=== PATIENT | male | born 1965 | race Caucasian/White ===

== ENCOUNTER 2022-03-17 06:58 | Outpatient (CLI) | payer BC, SELFPAY ==
--- NOTE | 2022-03-17 07:15 | MR_ITS ---
WS: [id number] MRI CERVICAL SPINE NONCONTRAST HISTORY: Chronic neck and shoulder pain. Increasing pain. COMPARISON: None available. Technique: Multiplanar, multisequence noncontrast imaging of the cervical spine. Straightening of the normal cervical lordosis. Disc spaces are mildly narrowed throughout. Osteophyte s and disc space narrowing most significant from C3-4 through C6-7. No acute marrow edema or fractur e. Signal within the cervical cord is normal. Craniocervical junction, C1 and C2 relationship, odontoid process and soft tissues are normal. C2-C3: Normal. C3-C4: Moderate size central disc osteophyte encroaches and deforms the ventral thecal sac. Disc oste ophyte extends greatest to the RIGHT with more deformity of the RIGHT lateral thecal sac. Moderate ce ntral and RIGHT foraminal stenosis. Mild LEFT foraminal stenosis. Mild facet arthritis. C4-C5: Mild diffuse osteophytic ridging with disc bulging. Effacement of ventral CSF with the larger proximal RIGHT foraminal osteophyte. Moderate central and bilateral foraminal stenosis predominantly due to osteophytes. C5-C6: Mild osteophytic ridging. No significant stenosis. Mild facet arthritis. C6-C7: Mild osteophytic ridging and annular disc bulging and facet arthritis. Moderate LEFT foraminal disc osteophyte complex contacting the nerve roots. Mild central with moderate LEFT foraminal stenos is. C7-T1: Mild annular disc bulge with a moderate LEFT paracentral disc protrusion contacting the LEFT l ateral thecal sac. Mild central and bilateral foraminal stenosis. Paraspinal soft tissue are normal. MR/MR cervical spin wo con* [id number] IMPRESSION: 1. Multilevel central cervical and foraminal stenosis as above. 2. No acute fracture. 3. Moderate central and RIGHT foraminal stenosis at C3-4 due to disc osteophyt e disease. Only mild LEFT foraminal stenosis. 4. Moderate central and bilateral foraminal stenosis at C4-5 due to disc and o steophyte disease. 5. Moderate LEFT foraminal stenosis at C6-7 due to disc osteophyte with mild c entral stenosis. 6. Mild central and bilateral foraminal stenosis at C7-T1. LEFT paracentral di sc protrusion contacts the LEFT lateral thecal sac.
== END 2022-03-17 06:59 | disposition home or self-care (01) ==
PROVIDERS: PCP Family Medicine; Visit Provider Specialist
DX: M54.12 Radiculopathy, cervical region (principal); M48.02 Spinal stenosis, cervical region; R29.90 Unspecified symptoms and signs involving the nervous system
CPT/HCPCS: 72141

== ENCOUNTER 2022-04-01 06:00 | Outpatient (RCR) | payer BC, SELFPAY | END 2022-04-12 23:59 | disposition home or self-care (01) | LOC: SPT 06:00 | PROVIDERS: PCP Family Medicine; Referring Provider Specialist; Visit Provider Specialist | DX: M54.12 Radiculopathy, cervical region (principal); M48.02 Spinal stenosis, cervical region | CPT/HCPCS: 97110; 97161 ==

== ENCOUNTER 2022-12-03 08:17 | Outpatient (CLI) | payer OTHER, SELFPAY ==
--- NOTE | 2022-12-03 08:44 | XR_ITS ---
WS: [id number] EXAMINATION: XR lumbar spine 2-3V* [id number] L-SPINE : 3 views REASON FOR EXAM: LOW BACK PAIN COMPARISON: None available. ORDER DATE: 12/03/2022 9:05 AM FINDINGS: The lumbar vertebral bodies and the disc spaces are normal in width. Minor endplate spondylosis. In t he lumbar vertebra, there is no evidence of compression deformities or spondylolisthesis. XR/XR lumbar spine 2-3V* [id number] IMPRESSION: Minor degenerative change
== END 2022-12-03 08:18 | disposition home or self-care (01) ==
LOC: RAD 08:27
PROVIDERS: PCP Family Medicine; Visit Provider Family Medicine
DX: Z02.71 Encounter for disability determination (principal); M54.50 Low back pain, unspecified; M47.896 Other spondylosis, lumbar region
CPT/HCPCS: 72100

== ENCOUNTER 2024-11-24 08:07 | Emergency (ER) | payer MEDICARE, OTHER, SELFPAY ==
--- NOTE | 2024-11-24 08:10 | XR_ITS ---
WS: [id number] KUB, AP view, 11/24/2024 Clinical Data: abd pain Comparison: None. Findings: No abnormal intraabdominal masses or calcifications are seen. There is no dilatated small bowel or evidence of obstruction. There is air in the stomach, small bowel and colon. XR/XR abdomen 1V* [id number] Impression: Negative KUB.
[2024-11-24 08:14] VITALS: BP 116/73; PULSE 73; RESP 18; TEMP 36.7; O2SAT 99; BMI 29.7
[2024-11-24 08:48] LABS: Bilirubin Urine Negative (Negative); Blood Urine Negative (Negative); Glucose Urine UA Negative (Normal); Ketones Urine Negative (Negative); Leukocyte Esterase Urine Negative (Negative); Nitrate Urine Negative (Negative); Protein Urine Negative (Negative); Specific Gravity, Urine 1.012 (1.005-1.030); Urine Appearance Clear (CLEAR); Urine Color Yellow (Yellow)
[2024-11-24 08:50] LABS: Bacteria Urine None Seen /hpf; Hyaline Casts Urine 0-4 /lpf; RBC Urine 0-2 /hpf (0-2); Squamous Epithelial Cell Urine 0-5 /hpf (0-5); WBC Urine 0-5 /hpf (0-5)
[2024-11-24 08:58] LABS: Basophils # 0.1 10^3/uL (0.0-0.1); Basophils % 0.5 %; Eosinophils # 0.1 10^3/uL (0.0-0.8); Eosinophils % 0.7 %; Hematocrit 44.3 % (37-53); Lymphocytes # 1.1 10^3/uL (0.8-4.8); Lymphocytes % 8.6 %; Mean Corpuscular HGB Conc 33.4 g/dL (30-55); Mean Corpuscular Hemoglobin 27.8 pg (27-33); Mean Corpuscular Volume 83.3 fl (82-101); Mean Platelet Volume 10.7 fL (7.4-10.4); Monocytes # 1.5 10^3/uL (0.2-0.9); Monocytes % 11.3 %; Neutrophils # 10.32 10^3/uL (1.8-7.7); Neutrophils % 77.6 %; Nucleated Red Blood Cells % 0 %; Platelet Count 226 10^3/cmm (157-399); Red Blood Count 5.32 10^6/uL (3.85-5.65); Red Cell Distribution Width 12.9 % (12.1-15.1); White Blood Count 13.29 10^3/uL (3.29-11.43)
[2024-11-24 09:16] LABS: Alanine Aminotransferase 98 U/L (0-41); Albumin Level 3.7 g/dL (3.5-5.2); Alkaline Phosphatase 170 U/L (40-130); Anion Gap 14.9 (5-19); Aspartate Amino Transferase 26 U/L (0-40); Blood Urea Nitrogen 10 mg/dL (6-20); Calcium 8.3 mg/dL (8.5-10.5); Carbon Dioxide 21 mmol/L (22-29); Chloride 102 mmol/L (98-107); Creatinine Clr Calc Pharmacy 84.4295; Globulin 2.5 g/dL (1.3-4.6); Glomerular Filtration Rate 76.7 mL/min (90-130); Glucose 135 mg/dL (65-115); Lipase 20 U/L (13-60); Osmolality Calculated 279 mOsm/kg (285-295); Potassium 3.9 mmol/L (3.5-5.1); Sodium 134 mmol/L (136-145); Total Bilirubin 0.8 mg/dL (0.15-1.2); Total Protein 6.2 g/dL (6.6-8.7)
--- NOTE | 2024-11-24 09:18 | CTR_ITS ---
PROCEDURE INFORMATION: Exam: CT Abdomen And Pelvis With Contrast Exam date and time: 11/24/2024 9:31 AM Age: 59 years old Clinical indication: Abdominal pain; Abd pain. PT states he has taken multiple abx since aug 2024 for sinus congestion. PT states that he has had diarrhea x 2 weeks. PT states that he then started taking pepto and states he began passing dark black blood clots in stool. PT states that resolved after stopping the pepto. PT reports bloating, n/v, and abd pain TECHNIQUE: Imaging protocol: Computed tomography of the abdomen and pelvis with contrast. Radiation optimization: All CT scans at this facility use at least one of these dose optimization techniques: automated exposure control; mA and/or kV adjustment per patient size (includes targeted exams where dose is matched to clinical indication); or iterative reconstruction. Contrast material: OMNI 350; Contrast volume: 100 ml; Contrast route: INTRAVENOUS (IV); COMPARISON: CR XR abdomen 1V* [id number] 11/24/2024 8:38 AM RADIATION DOSE METRICS: Total DLP (mGy-cm): 854.66 FINDINGS: Lungs: Lung bases are clear as visualized. Diaphragm: Small hiatal hernia. Liver: Normal. No mass. Gallbladder and biliary ducts: Normal. No calcified stones. No ductal dilation. Pancreas: Normal. No ductal dilation. Spleen: Normal. No splenomegaly. Adrenal glands: Normal. No mass. Kidneys and ureters: Several small renal cysts bilaterally need no follow-up. Otherwise, unremarkable. Stomach and bowel: Pancolitis is likely infectious, but could be inflammatory bowel disease. A few diverticula from the colon. Otherwise, unremarkable. Appendix: No evidence of appendicitis. Intraperitoneal space: Small amount of free intraperitoneal fluid and fat stranding abdomen and pelvis bilaterally, likely secondary to bowel pathology. No free air. Vasculature: Unremarkable. No abdominal aortic aneurysm. Lymph nodes: Unremarkable. No enlarged lymph nodes. Urinary bladder: Unremarkable. Reproductive: Unremarkable. Bones/joints: Minimal multilevel spondylosis. Otherwise, unremarkable. Soft tissues: Small fat containing left inguinal hernia. Small fat containing benign-appearing umbilical hernia. Otherwise, unremarkable visualized body wall. Otherwise, unremarkable soft tissues. CT/CT abdomen pelvis w con* [id number] IMPRESSION: 1. Pancolitis is likely infectious, but could be inflammatory bowel disease. 2. Small amount of free intraperitoneal fluid and fat stranding abdomen and pelvis bilaterally, likely secondary to bowel pathology. 3. No other acute findings. 4. Additional details as above.
--- NOTE | 2024-11-24 09:22 | W.ED.ABDPA2 ---
HPI - Abdominal Pain General: Chief Complaint: Abdominal Pain Stated Complaint: constipation, vomiting Time Seen by Provider: 11/24/24 08:54 History of Present Illness: 59-year-old man who presents emergency room with abdominal pain, nausea and vomiting. He said he took some antibiotics and had some fairly extensive diarrhea. He then feels like over the last day he has been constipated. He developed some nausea and vomiting overnight. Is been having some lower abdominal pain. No known fevers Related Data Home Medications ?Medication ?Instructions ?Recorded ?Confirmed famotidine 10 mg tablet (Pepcid AC) 10 mg PO DAILY 01/28/22 11/24/24 lisinopril 40 mg tablet 40 mg PO DAILY 01/28/22 11/24/24 tamsulosin 0.4 mg capsule (Flomax) 0.4 mg PO DAILY 11/24/24 11/24/24 Previous Rx's ?Medication ?Instructions ?Recorded ciprofloxacin HCl 500 mg tablet 500 mg PO BID 10 days #20 tabs 11/24/24 metronidazole 500 mg tablet 500 mg PO Q8H 10 days #30 tabs 11/24/24 ondansetron 8 mg disintegrating 8 mg PO Q6H #14 tabs 11/24/24 tablet tramadol 50 mg tablet 50 mg PO Q8H PRN pain #10 tabs 11/24/24 Allergies Allergy/AdvReac Type Severity Reaction Status Date / Time propranolol Allergy JGY-Swell Verified 11/24/24 08:30 Lip/Tongue/Throat Review of Systems Narrative: Constitutional symptoms: Negative except as documented in HPI. Skin symptoms: Negative except as documented in HPI. Eye symptoms: Negative except as documented in HPI. ENMT symptoms: Negative except as documented in HPI. Respiratory symptoms: Negative except as documented in HPI. Cardiovascular symptoms: Negative except as documented in HPI. Gastrointestinal symptoms: Negative except as documented in HPI. Genitourinary symptoms: Negative except as documented in HPI. Musculoskeletal symptoms: Negative except as documented in HPI. Neurologic symptoms: Negative except as documented in HPI. Psychiatric symptoms: Negative except as documented in HPI. Endocrine symptoms: Negative except as documented in HPI. PFS ED PFSH: Social History Smoking and tobacco/nicotine status: never used tobacco/nicotine Physical Exam Narrative: EXAM NARRATIVE: General: Alert, no acute distress. Skin: Warm, dry. Head: Normocephalic, atraumatic. Neck: Supple, trachea midline. Eye: Extraocular movements are intact. Ears, nose, mouth and throat: Tacky oral mucosa Cardiovascular: Regular, Normal peripheral perfusion. Respiratory: Lungs are clear to auscultation, respirations are non-labored, breath sounds are equal, Symmetrical chest wall expansion. Gastrointestinal: Soft, Nontender, Non distended Musculoskeletal: Normal ROM, no deformity. Neurological: Alert and oriented, No focal neurological deficit observed. Psychiatric: Cooperative, appropriate mood & affect. Course Vital Signs: Vital signs: Vital Signs Temperature 98.0 F 11/24/24 08:14 Pulse Rate 65 11/24/24 11:32 Respiratory Rate 18 11/24/24 11:32 Blood Pressure 120/70 11/24/24 11:32 Pulse Oximetry 93 11/24/24 11:32 Oxygen Delivery Me thod Room Air 11/24/24 08:14 MDM - Abdominal Pain Medical Decision Making Medical decision making: Differential diagnosis for this patient with nausea and vomiting including but not limited to and based on the above HPI, review of systems and physical exam: Urinary tract infection. Appendicitis. Cholecystis. colitis. small bowel obstruction. crohn's flare. pancreatitis. gastritis. peptic ulcer. cyclic vomiting. Viral illness. Influenza. COVID. Orders placed to evaluate differential diagnosis based on the above differential, HPI and physical exam Lab Review: Laboratory results were reviewed and interpreted by myself the emergency room physician. Mild leukocytosis. No anemia. No renal failure. Urinalysis negative for infection. Lipase is negative. CT of the abdomen pelvis: Pancolitis. No other acute findings. This was reviewed and interpreted by myself the emergency room physician. I also reviewed the radiology report. I reviewed the patient's medical record. Reexamination: Patient remained stable. No increased work of breathing. No altered mental status. No focal motor deficits. Assessment and plan: Pancolitis Dehydration ? IV fluids Zofran and Toradol in the emergency room - Discharged home - Discussed plan with patient. Answered any questions. - Evaluation and treatment of this problem were appropriate in the emergency setting. Lab Data 11/24/24 08:54 11/24/24 08:54 Labs/Radiology: Radiology Impressions Abdomen X-Ray 11/24/24 08:10 Impression: Negative KUB. Abdomen/Pelvis CT 11/24/24 09:18 IMPRESSION: 1. Pancolitis is likely infectious, but could be inflammatory bowel disease. 2. Small amount of free intraperitoneal fluid and fat stranding abdomen and pelvis bilaterally, likely secondary to bowel pathology. 3. No other acute findings. 4. Additional details as above. Laboratory Results WBC 13.29 10^3/uL (3.29-11.43) H 11/24/24 08:54 RBC 5.32 10^6/uL (3.85-5.65) 11/24/24 08:54 Hgb 14.80 g/dL (11.27-16.99) 11/24/24 08:54 Hct 44.3 % (37-53) 11/24/24 08:54 MCV 83.3 fl (82-101) 11/24/24 08:54 MCH 27.8 pg (27-33) 11/24/24 08:54 MCHC 33.4 g/dL (30-55) 11/24/24 08:54 RDW 12.9 % (12.1-15.1) 11/24/24 08:54 Plt Count 226 10^3/cmm (157-399) 11/24/24 08:54 MPV 10.7 fL (7.4-10.4) H 11/24/24 08:54 Neut % (Auto) 77.6 % 11/24/24 08:54 Lymph % (Auto) 8.6 % 11/24/24 08:54 [place] % (Auto) 11.3 % 11/24/24 08:54 Eos % (Auto) 0.7 % 11/24/24 08:54 Baso % (Auto) 0.5 % 11/24/24 08:54 Neut # (Auto) 10.32 10^3/uL (1.8-7.7) H 11/24/24 08:54 Lymph # (Auto) 1.1 10^3/uL (0.8-4.8) 11/24/24 08:54 [place] # (Auto) 1.5 10^3/uL (0.2-0.9) H 11/24/24 08:54 Eos # (Auto) 0.1 10^3/uL (0.0-0.8) 11/24/24 08:54 Baso # (Auto) 0.1 10^3/uL (0.0-0.1) 11/24/24 08:54 Nucleated RBC % (auto) 0 % 11/24/24 08:54 Nucleated RBCs # 0.0 /100WBC 11/24/24 08:54 Sodium 134 mmol/L (136-145) L 11/24/24 08:54 Potassium 3.9 mmol/L (3.5-5.1) 11/24/24 08:54 Chloride 102 mmol/L (98-107) 11/24/24 08:54 Carbon Dioxide 21 mmol/L (22-29) L 11/24/24 08:54 Anion Gap 14.9 (5-19) 11/24/24 08:54 BUN 10 mg/dL (6-20) 11/24/24 08:54 Creatinine 1.0 mg/dL (0.7-1.2) 11/24/24 08:54 GFR Calculation 76.7 mL/min (90-130) L 11/24/24 08:54 Glucose 135 mg/dL (65-115) H 11/24/24 08:54 Calculated Osmolality 279 mOsm/kg (285-295) L 11/24/24 08:54 Calcium 8.3 mg/dL (8.5-10.5) L 11/24/24 08:54 Total Bilirubin 0.8 mg/dL (0.15-1.2) 11/24/24 08:54 AST 26 U/L (0-40) 11/24/24 08:54 ALT 98 U/L (0-41) H 11/24/24 08:54 Alkaline Phosphatase 170 U/L (40-130) H 11/24/24 08:54 Total Protein 6.2 g/dL (6.6-8.7) L 11/24/24 08:54 Albumin 3.7 g/dL (3.5-5.2) 11/24/24 08:54 Globulin 2.5 g/dL (1.3-4.6) 11/24/24 08:54 Lipase 20 U/L (13-60) 11/24/24 08:54 Urine Color Yellow (Yellow) 11/24/24 08:40 Urine Appearance Clear (CLEAR) 11/24/24 08:40 Urine pH 6.0 (5-7) 11/24/24 08:40 Ur Specific [place] 1.012 (1.005-1.030) 11/24/24 08:40 Urine Protein Negative (Negative) 11/24/24 08:40 Urine Glucose (UA) Negative (Normal) 11/24/24 08:40 Urine Ketones Negative (Negative) 11/24/24 08:40 Urine Blood Negative (Negative) 11/24/24 08:40 Urine Nitrate Negative (Negative) 11/24/24 08:40 Urine Bilirubin Negative (Negative) 11/24/24 08:40 Urine Urobilinogen 1.0 mg/dL (Negative) 11/24/24 08:40 Ur Leukocyte Esterase Negative (Negative) 11/24/24 08:40 Urine RBC 0-2 /hpf (0-2) 11/24/24 08:40 Urine WBC 0-5 /hpf (0-5) 11/24/24 08:40 Ur Squamous Epith Cells 0-5 /hpf (0-5) 11/24/24 08:40 Amorphous Sediment Not Reportable 11/24/24 08:40 Urine Bacteria None seen /hpf (NONE) 11/24/24 08:40 Hyaline Casts 0-4 /lpf H 11/24/24 08:40 All radiology interpretation(s) finalized by discharge Discharge Plan Discharge Patient Disposition: Home Clinical Impression: Pancolitis Condition: Stable Prescriptions: New metronidazole 500 mg tablet 500 mg PO Q8H 10 Days Qty: 30 0RF ciprofloxacin HCl 500 mg tablet 500 mg PO BID 10 Days Qty: 20 0RF tramadol 50 mg tablet 50 mg PO Q8H PRN (Reason: pain) Qty: 10 0RF ondansetron 8 mg tablet,disintegrating 8 mg PO Q6H Qty: 14 0RF Rx Instructions: Take 1/2-1 tab every 6 hours as needed for nausea and vomiting No Action famotidine [Pepcid AC] 10 mg tablet 10 mg PO DAILY lisinopril 40 mg tablet 40 mg PO DAILY tamsulosin [Flomax] 0.4 mg capsule 0.4 mg PO DAILY Discharge Orders: Discharge ED (Routine); Ordered 11/24/24 Ordered By: Elana Tyson Referrals: Alexi Sharpe MD [Primary Care Provider] - Discharge Diet: Advance as tolerated Discharge Activity: Increase activity as tolerated Patient Instructions: Opioid Safety, Pain Management Activity Restrictions/Additional Instructions: [facility]. Please realize this is an emergency room and that we are providing you with a medical screening exam and this may not be complete and all inclusive of all the testing and or work up that you may need to determine your ailment or severity of your illness. You have been screened and evaluated and felt safe for discharge. Health conditions do change or evolve sometimes and as such it is important that you follow up with your Primary Doctor to be re checked, 3-5 days is a general good time frame for follow up. You are always welcome to return to the ED for re assessment if your symptoms are worsening or you have new concerns Print Language: Vietnamese Coding Level of Care Code ED Fire Extinguisher Mechanic for Arjun Puentes
[2024-11-24] MEDS: iohexol 350 mg/mL 500 mL Btl (per mL) IV (09:42)
[2024-11-24] MEDS: sodium chloride 0.9% 1,000 ML 999 ML IV (09:52)
[2024-11-24] MEDS: ketorolac 30 mg/mL INJ IVP (09:52)
[2024-11-24] MEDS: ondansetron 2 mg/ML SDV 2 mL 8 MG IVP (09:52)
[2024-11-24 10:09] VITALS: BP 118/71; PULSE 66; RESP 18; O2SAT 98
[2024-11-24 11:32] VITALS: BP 120/70; PULSE 65; RESP 18; O2SAT 93
== END 2024-11-24 11:33 | disposition home or self-care (01) ==
PROVIDERS: Emergency Provider Emergency Medicine; PCP Family Medicine
DX: K52.9 Noninfective gastroenteritis and colitis, unspecified (principal)
CPT/HCPCS: 36415; 74018; 74177; 80053; 81001; 83690; 85025; 96374; 96375; 99285; J1885; J2405; J7030

== ENCOUNTER 2024-11-25 06:24 | Inpatient (IN) | payer MEDICARE, OTHER, SELFPAY ==
[2024-11-25] VITALS (10 sets, daily range): BP systolic 99–127; BP diastolic 52–72; PULSE 67–77; RESP 16–18; TEMP 36.6–37.1; O2SAT 94–98; BMI 28.1
--- NOTE | 2024-11-25 06:59 | W.ED.NAVMDI ---
HPI - Nausea/Vomiting/Diarrhea General: Chief complaint: Nausea/Vomiting/Diarrhea Stated complaint: n/v Time Seen by Provider: 11/25/24 06:35 Source: patient Mode of arrival: ambulatory Limitations: no limitations History of Present Illness: 59-year-old male he states that he has been having diffuse abdominal pain along with nausea vomiting for the last 2 days. He was seen here yesterday morning was diagnosed with a colitis he is started on Cipro Flagyl along with Zofran he states he has not been able tolerating the p.o. medicine he still had vomiting states his pain is worsening. He denies any fevers. Associated nausea: Yes Associated symtoms: Reports nausea; Denies chest pain, dysuria or headache(s) Related Data Home Medications ?Medication ?Instructions ?Recorded ?Confirmed famotidine 10 mg tablet (Pepcid AC) 10 mg PO DAILY 01/28/22 11/25/24 lisinopril 40 mg tablet 40 mg PO DAILY 01/28/22 11/25/24 tamsulosin 0.4 mg capsule (Flomax) 0.4 mg PO DAILY 11/24/24 11/25/24 Previous Rx's ?Medication ?Instructions ?Recorded ciprofloxacin HCl 500 mg tablet 500 mg PO BID 10 days #20 tabs 11/24/24 metronidazole 500 mg tablet 500 mg PO Q8H 10 days #30 tabs 11/24/24 ondansetron 8 mg disintegrating 8 mg PO Q6H #14 tabs 11/24/24 tablet tramadol 50 mg tablet 50 mg PO Q8H PRN pain #10 tabs 11/24/24 Allergies Allergy/AdvReac Type Severity Reaction Status Date / Time propranolol Allergy ALGY-Swell Verified 11/24/24 08:30 Lip/Tongue/Throat Review of Systems Const: Denies: fever(s), chills, body aches or change in appetite ENMT: Denies: throat pain or dental pain Card: Denies: chest pain Resp: Denies: dyspnea GI: Reports: abdominal pain, nausea and vomiting; Denies: diarrhea : Denies: dysuria Musc: Denies: neck pain or back pain Skin/Breast: Denies: rash Neuro: Denies: headache(s) PFSH ED PFSH: Social History Smoking and tobacco/nicotine status: never used tobacco/nicotine Physical Exam Const: COMMON NORMALS: no acute distress, patient oriented x3 and healthy appearing HENMT: COMMON NORMALS: normocephalic and atraumatic HEAD & SCALP: normocephalic and atraumatic Eye: COMMON NORMALS: conjunctivae normal CONJUNCTIVA: Yes conjunctivae normal Neck/C-Spine: COMMON NORMALS: full ROM and supple Chest: COMMONS NORMALS: normal inspection of the chest Resp: COMMON NORMALS: normal respiratory effort Cardio: COMMON NORMALS: regular rate, regular rhythm and No murmurs present (Cardio) RATE: regular rate RHYTHM: regular rhythm GI: COMMON NORMALS: Normal to inspection, nondistended, normoactive bowel sounds present, Soft to palpation and no masses PALPATION: Yes Soft to palpation OTHER: Diffuse tenderness Extremity: COMMON NORMALS: normal to inspection and full ROM Neuro: COMMON NORMALS: patient oriented x3, moves all extremities and no focal motor deficits Psych: COMMON NORMALS: mental status grossly normal, Normal thought process present and cooperative THOUGHT PROCESS: Normal thought process present Skin: COMMON NORMALS: no rashes or lesions noted and no wounds GENERAL SKIN EXAM: no rashes or lesions noted Course Vital Signs: Vital signs: Vital Signs Temperature 98.8 F 11/25/24 06:30 Pulse Rate 69 11/25/24 08:32 Respiratory Rate 16 11/25/24 08:01 Blood Pressure 124/57 11/25/24 08:32 Pulse Oximetry 95 11/25/24 08:32 Oxygen Delivery Me thod Room Air 11/25/24 06:30 MDM - Nausea/Vomiting/Diarrhea Medical Decision Making Patient presents here with diffuse abdominal pain along with vomiting he is seen yesterday and had a pancolitis he has not been able to tolerate any of his meds p.o. having worsening his pain his white count is elevated from yesterday lactates normal CT shows same will admitted he has failed outpatient therapy at this time Medical Records I reviewed the patient's medical records. Lab Data I reviewed the patient's lab results. 11/25/24 06:54 11/25/24 06:54 Radiology Impressions Abdomen/Pelvis CT 11/25/24 07:05 IMPRESSION: Pancolitis, likely infectious/inflammatory in etiology. Mild increase in the ascites. No bowel perforation or bowel obstruction. Laboratory Results WBC 20.69 10^3/uL (3.29-11.43) H 11/25/24 06:54 RBC 5.45 10^6/uL (3.85-5.65) 11/25/24 06:54 Hgb 15.10 g/dL (11.27-16.99) 11/25/24 06:54 Hct 45.9 % (37-53) 11/25/24 06:54 MCV 84.2 fl (82-101) 11/25/24 06:54 MCH 27.7 pg (27-33) 11/25/24 06:54 MCHC 32.9 g/dL (30-55) 11/25/24 06:54 RDW 13.0 % (12.1-15.1) 11/25/24 06:54 Plt Count 252 10^3/cmm (157-399) 11/25/24 06:54 MPV 10.8 fL (7.4-10.4) H 11/25/24 06:54 Neut % (Auto) 83.8 % 11/25/24 06:54 Lymph % (Auto) 4.1 % 11/25/24 06:54 [place] % (Auto) 9.4 % 11/25/24 06:54 Eos % (Auto) 0.1 % 11/25/24 06:54 Baso % (Auto) 0.4 % 11/25/24 06:54 Neut # (Auto) 17.33 10^3/uL (1.8-7.7) H 11/25/24 06:54 Lymph # (Auto) 0.9 10^3/uL (0.8-4.8) 11/25/24 06:54 [place] # (Auto) 1.9 10^3/uL (0.2-0.9) H 11/25/24 06:54 Eos # (Auto) 0.0 10^3/uL (0.0-0.8) 11/25/24 06:54 Baso # (Auto) 0.1 10^3/uL (0.0-0.1) 11/25/24 06:54 Nucleated RBC % (auto) 0 % 11/25/24 06:54 Nucleated RBCs # 0.0 /100WBC 11/25/24 06:54 Sodium 128 mmol/L (136-145) L 11/25/24 06:54 Potassium 3.8 mmol/L (3.5-5.1) 11/25/24 06:54 Chloride 96 mmol/L (98-107) L 11/25/24 06:54 Carbon Dioxide 19 mmol/L (22-29) L 11/25/24 06:54 Anion Gap 16.8 (5-19) 11/25/24 06:54 BUN 12 mg/dL (6-20) 11/25/24 06:54 Creatinine 1.6 mg/dL (0.7-1.2) H 11/25/24 06:54 GFR Calculation 44.6 mL/min (90-130) L 11/25/24 06:54 Glucose 138 mg/dL (65-115) H 11/25/24 06:54 Calculated Osmolality 268 mOsm/kg (285-295) L 11/25/24 06:54 Lactic Acid 1.9 mmol/L (0.5-2.2) 11/25/24 06:54 Calcium 7.6 mg/dL (8.5-10.5) L 11/25/24 06:54 Total Bilirubin 1.1 mg/dL (0.15-1.2) 11/25/24 06:54 AST 16 U/L (0-40) 11/25/24 06:54 ALT 56 U/L (0-41) H 11/25/24 06:54 Alkaline Phosphatase 144 U/L (40-130) H 11/25/24 06:54 Total Protein 5.8 g/dL (6.6-8.7) L 11/25/24 06:54 Albumin 2.9 g/dL (3.5-5.2) L 11/25/24 06:54 Globulin 2.9 g/dL (1.3-4.6) 11/25/24 06:54 Lipase 18 U/L (13-60) 11/25/24 06:54 No radiology studies performed this visit Discharge Plan Discharge Patient Disposition: Admitted As Inpatient Clinical Impression: Pancolitis, Vomiting Condition: Stable Prescriptions: No Action famotidine [Pepcid AC] 10 mg tablet 10 mg PO DAILY lisinopril 40 mg tablet 40 mg PO DAILY tamsulosin [Flomax] 0.4 mg capsule 0.4 mg PO DAILY metronidazole 500 mg tablet 500 mg PO Q8H 10 Days Qty: 30 0RF ciprofloxacin HCl 500 mg tablet 500 mg PO BID 10 Days Qty: 20 0RF tramadol 50 mg tablet 50 mg PO Q8H PRN (Reason: pain) Qty: 10 0RF ondansetron 8 mg tablet,disintegrating 8 mg PO Q6H Qty: 14 0RF Rx Instructions: Take 1/2-1 tab every 6 hours as needed for nausea and vomiting Referrals: Alexi Sharpe MD [Primary Care Provider] - Print Language: Tajik Coding Level of Care Code ED Facility Environmental Technician for Chg Dhaval
[2024-11-25 07:02] LABS: Basophils # 0.1 10^3/uL (0.0-0.1); Basophils % 0.4 %; Eosinophils % 0.1 %; Hematocrit 45.9 % (37-53); Lymphocytes # 0.9 10^3/uL (0.8-4.8); Lymphocytes % 4.1 %; Mean Corpuscular HGB Conc 32.9 g/dL (30-55); Mean Corpuscular Hemoglobin 27.7 pg (27-33); Mean Corpuscular Volume 84.2 fl (82-101); Mean Platelet Volume 10.8 fL (7.4-10.4); Monocytes # 1.9 10^3/uL (0.2-0.9); Monocytes % 9.4 %; Neutrophils # 17.33 10^3/uL (1.8-7.7); Neutrophils % 83.8 %; Nucleated Red Blood Cells % 0 %; Platelet Count 252 10^3/cmm (157-399); Red Blood Count 5.45 10^6/uL (3.85-5.65); White Blood Count 20.69 10^3/uL (3.29-11.43)
--- NOTE | 2024-11-25 07:05 | CTR_ITS ---
PROCEDURE INFORMATION: Exam: CT Abdomen And Pelvis With Contrast Exam date and time: 11/25/2024 7:30 AM Age: 59 years old Clinical indication: Abdominal pain; Additional info: Abd pain TECHNIQUE: Imaging protocol: Computed tomography of the abdomen and pelvis with contrast. Radiation optimization: All CT scans at this facility use at least one of these dose optimization techniques: automated exposure control; mA and/or kV adjustment per patient size (includes targeted exams where dose is matched to clinical indication); or iterative reconstruction. Contrast material: OMNI 350; Contrast volume: 100 ml; Contrast route: INTRAVENOUS (IV); COMPARISON: CT abdomen pelvis w con* [id number] 11/24/2024 9:31 AM RADIATION DOSE METRICS: Total DLP (mGy-cm): 863.43 FINDINGS: Lungs: Bibasilar atelectasis. Diaphragm: A small hiatal hernia is present. Liver: Normal. No mass. Gallbladder and biliary ducts: Normal. No calcified stones. No ductal dilation. Pancreas: Normal. No ductal dilation. Spleen: Normal. No splenomegaly. Adrenal glands: Normal. No mass. Kidneys and ureters: Stable left renal parapelvic cysts. There is no evidence of hydronephrosis. Stomach and bowel: There is thickening of the wall of the colon with mucosal enhancement and mild surrounding fat stranding and inflammatory changes. Appendix: No evidence of appendicitis. Intraperitoneal space: There is a small amount of free intraperitoneal fluid present. Vasculature: There are numerous benign phleboliths in the pelvis. Lymph nodes: Unremarkable. No enlarged lymph nodes. Urinary bladder: Unremarkable as visualized. Reproductive: Unremarkable as visualized. Bones/joints: Unremarkable. No acute fracture. Soft tissues: Bilateral fat containing inguinal hernias. CT/CT abdomen pelvis w con* [id number] IMPRESSION: Pancolitis, likely infectious/inflammatory in etiology. Mild increase in the ascites. No bowel perforation or bowel obstruction.
[2024-11-25] MEDS: metoclopramide 5 mg/mL SDV 2 mL 10 MG IVP (07:12)
[2024-11-25] MEDS: diphenhydrAMINE 50 mg/mL SDV 1mL IVP (07:12)
[2024-11-25 07:31] LABS: Alanine Aminotransferase 56 U/L (0-41); Albumin Level 2.9 g/dL (3.5-5.2); Alkaline Phosphatase 144 U/L (40-130); Anion Gap 16.8 (5-19); Aspartate Amino Transferase 16 U/L (0-40); Blood Urea Nitrogen 12 mg/dL (6-20); Calcium 7.6 mg/dL (8.5-10.5); Carbon Dioxide 19 mmol/L (22-29); Chloride 96 mmol/L (98-107); Globulin 2.9 g/dL (1.3-4.6); Glomerular Filtration Rate 44.6 mL/min (90-130); Glucose 138 mg/dL (65-115); Lipase 18 U/L (13-60); Osmolality Calculated 268 mOsm/kg (285-295); Potassium 3.8 mmol/L (3.5-5.1); Sodium 128 mmol/L (136-145); Total Bilirubin 1.1 mg/dL (0.15-1.2); Total Protein 5.8 g/dL (6.6-8.7)
[2024-11-25 07:32] LABS: Creatinine Clr Calc Pharmacy 51.4769; Lactic Sepsis W/Reflex 1.9 mmol/L (0.5-2.2)
[2024-11-25] MEDS: iohexol 350 mg/mL 500 mL Btl (per mL) IV (07:37)
[2024-11-25] MEDS: sodium chloride 0.9% 1,000 ML 999 ML IV (08:01)
[2024-11-25] MEDS: morphine 4 mg/mL SDV 1 mL IVP (08:01)
--- NOTE | 2024-11-25 08:32 | PM.HP ---
Providers/Chief Complaint Primary Care Provider: Alexi Sharpe MD Chief Complaint: n/v History of Present Illness Que Mallory is a 59 year old male with a past medical history significant for cervical radiculopathy, hypertension, and recurrent sinusitis who presents to the emergency department with worsening abdominal symptoms. Patient reports symptoms worsened starting last Wednesday with abdominal pains, nausea and vomiting. He reports prior to last Wednesday he did have some intermittent diarrhea which he attributed to recurrent antibiotic treatment. He notes since August has been on a couple different antibiotics for recurrent sinusitis. He describes his pain overnight as severe, 10 out of 10. He reports the pains diffuse but more lower quadrants than upper. Endorses associated severe nausea and vomiting. Reports severe watery diarrhea, reports brown in color. Reports last week his stool was severely foul-smelling which is now improved. He denies known history of inflammatory bowel disease. States he gets a colonoscopy every 5 years due to extensive family history of colon cancer. Reports his last colonoscopy was approximately 3 years ago. Reports all his colonoscopies thus far been normal. He denies fevers. Reports he did have some transient black stool with concern for possible blood clots but he had been on Pepto-Bismol which he has since stopped with resolution of black stools. Of note, patient was seen in the emergency department yesterday for similar complaint. Yesterday, abdominal CT showed pancolitis with small amount of intraperitoneal free fluid. He was prescribed oral antibiotics and discharged home. Patient reports he could not tolerate oral antibiotics due to persistent nausea and vomiting. Emergency department today, he was found to have significantly worsening leukocytosis. He has an acute kidney injury. Repeat CT scan showed similar findings to yesterday. Review of Systems Narrative: A complete review of systems was obtained and is negative except as stated in HPI. Medications/Allergies Home Medications ?Medication ?Instructions ?Recorded ?Confirmed ?Last Taken ?Type famotidine 10 mg tablet (Pepcid AC) 10 mg PO DAILY 01/28/22 11/25/24 11/24/24 History lisinopril 40 mg tablet 40 mg PO DAILY 01/28/22 11/25/24 11/24/24 History ciprofloxacin HCl 500 mg tablet 500 mg PO BID 10 days #20 tabs 11/24/24 11/25/24 Unknown Rx metronidazole 500 mg tablet 500 mg PO Q8H 10 days #30 tabs 11/24/24 11/25/24 Unknown Rx ondansetron 8 mg disintegrating 8 mg PO Q6H #14 tabs 11/24/24 11/25/24 Unknown Rx tablet tamsulosin 0.4 mg capsule (Flomax) 0.4 mg PO DAILY 11/24/24 11/25/24 11/24/24 History tramadol 50 mg tablet 50 mg PO Q8H PRN pain #10 tabs 11/24/24 11/25/24 Unknown Rx Allergies Allergy/AdvReac Type Severity Reaction Status Date / Time propranolol Allergy ALGY-Swell Verified 11/24/24 08:30 Lip/Tongue/Throat PFSH Acute PFSH: Social History Smoking and tobacco/nicotine status: never used tobacco/nicotine Vitals/I&O/Wt Last Vital Signs Temp 98.8 F 11/25/24 06:30 Pulse 69 11/25/24 08:32 Resp 16 11/25/24 08:01 BP 124/57 11/25/24 08:32 Pulse Ox 95 11/25/24 08:32 O2 Del Method Room Air 11/25/24 06:30 Weight last 48 hrs Weight 81.647 kg Physical Exam Narrative: General: Patient is awake and alert. Ill-appearing but pleasant. Head: Normocephalic. Atraumatic. EOM intact. Neck: No JVD. Cardiovascular: RRR. No gallops. No murmurs. Lungs: Clear to auscultation, no use of accessory muscles, no crackles or wheezes. Skin: No jaundice. No rashes. Abdomen: Abdomen distended. Hyperactive bowel sounds. Tender to palpation in lower quadrants. Extremities: No cyanosis or clubbing. Musculoskeletal: No swollen or erythematous joints. Neurological: Moves all 4 extremities. No myoclonus. Data 11/25/24 06:54 11/25/24 06:54 A&P Assessment and plan (1) Pancolitis: Presentation consistent with pancolitis, failed outpatient treatment Start IV ciprofloxacin and IV Flagyl Stool studies ordered He has risk factors for C. difficile, C. difficile testing ordered IV hydration IV antiemetics as needed IV analgesics as needed Supportive care (2) Acute kidney injury: Suspect prerenal due to intractable nausea and vomiting Start aggressive IV fluids Strict I's and O's Daily weights Hold lisinopril (3) Hyponatremia: Hypovolemic hyponatremia Provide hydration with normal saline Trend labs (4) Vomiting: Intractable nausea and vomiting secondary to pancolitis IV antibiotics as needed (5) Metabolic acidosis: Non-anion gap metabolic acidosis secondary to GI loss Start IV hydration Trend labs (6) Transaminitis: Transaminitis, mild, suspect secondary to infection Continue to monitor closely (7) Hypertension: Blood pressure currently unremarkable Holding lisinopril due to NOREEN Utilize IV hydralazine as needed Monitors pressures Plan DVT prophylaxis: SCD CODE STATUS: Full code PDMP PDMP Reviewed: Not Reviewed Attestations Medical Necessity Statement*: Patient presents with severe nausea and vomiting, found to have failed oral antibiotic treatment for severe pain colitis, also found to have acute kidney injury, metabolic acidosis, and metabolic derangements with expected hospitalization not to cross 2 midnights for IV fluids, IV antibiotics, IV antibiotics, and supportive care. Coding Level of Care Code Acute Code for [facility] Diagnoses Pancolitis K51.00 Acute kidney injury N17.9 Hyponatremia E87.1 Vomiting R11.10 Metabolic acidosis E87.20 Transaminitis R74.01 Hypertension I10
[2024-11-25] MEDS: ciprofloxacin 400 MG/200 ML PREMIX 200 MG IV ×2 (08:50→20:51)
[2024-11-25] MEDS: metroNIDAZOLE IV 500 MG/100 ML PREMIX 100 MG IV ×2 (10:11→17:19)
[2024-11-25 10:56] LABS: Procalcitonin 0.44 ng/mL (0-0.5)
[2024-11-25] MEDS: sodium chloride 0.9% 1,000 ML 125 ML IV ×2 (10:58→20:52)
[2024-11-25] MEDS: pantoprazole 40 mg SDV IVP (10:58)
[2024-11-25 17:58] LABS: C.Diff PCR (Lab) POSITIVE (Negative)
--- NOTE | 2024-11-25 22:07 | PC.NURSE ---
Patient refusing PO Vancomycin, educated on importance of taking it due to c-diff infection, patient still continues to refuse. Dr Barrera notified
[2024-11-25] MEDS: TRAMadol 50 mg Tablet PO (22:55)
[2024-11-25] MEDS: ondansetron 2 mg/ML SDV 2 mL 4 MG IVP (22:55)
[2024-11-26] VITALS (8 sets, daily range): BP systolic 100–143; BP diastolic 62–99; PULSE 72–82; RESP 16–17; TEMP 36.7–36.9; O2SAT 94–97
[2024-11-26] MEDS: metroNIDAZOLE IV 500 MG/100 ML PREMIX 100 MG IV ×3 (01:11→17:12)
[2024-11-26 03:56] LABS: Basophils # 0.1 10^3/uL (0.0-0.1); Basophils % 0.5 %; Eosinophils # 0.1 10^3/uL (0.0-0.8); Eosinophils % 0.3 %; Hematocrit 39.7 % (37-53); Lymphocytes # 0.7 10^3/uL (0.8-4.8); Lymphocytes % 3.7 %; Mean Corpuscular Hemoglobin 28.5 pg (27-33); Mean Corpuscular Volume 86.3 fl (82-101); Mean Platelet Volume 11.1 fL (7.4-10.4); Monocytes % 10.2 %; Neutrophils # 16.44 10^3/uL (1.8-7.7); Neutrophils % 82.6 %; Nucleated Red Blood Cells % 0 %; Platelet Count 229 10^3/cmm (157-399); Red Cell Distribution Width 13.4 % (12.1-15.1); White Blood Count 19.91 10^3/uL (3.29-11.43)
[2024-11-26 04:24] LABS: C Reactive Protein 258.2 mg/L (0.0-4.9)
[2024-11-26 04:30] LABS: Alanine Aminotransferase 41 U/L (0-41); Albumin Level 2.5 g/dL (3.5-5.2); Alkaline Phosphatase 113 U/L (40-130); Anion Gap 17.3 (5-19); Aspartate Amino Transferase 19 U/L (0-40); Blood Urea Nitrogen 19 mg/dL (6-20); Calcium 6.9 mg/dL (8.5-10.5); Carbon Dioxide 19 mmol/L (22-29); Chloride 99 mmol/L (98-107); Creatinine Clr Calc Pharmacy 45.9699; Globulin 1.5 g/dL (1.3-4.6); Glomerular Filtration Rate 36.6 mL/min (90-130); Glucose 113 mg/dL (65-115); Magnesium 1.6 mg/dL (1.7-2.3); Osmolality Calculated 275 mOsm/kg (285-295); Phosphorus 3.2 mg/dL (2.5-4.5); Potassium 4.3 mmol/L (3.5-5.1); Sodium 131 mmol/L (136-145); Total Bilirubin 0.6 mg/dL (0.15-1.2)
[2024-11-26] MEDS: sodium chloride 0.9% 1,000 ML 125 ML IV (08:32)
[2024-11-26] MEDS: tamsulosin 0.4 mg Capsule PO (08:33)
[2024-11-26] MEDS: vancomycin 125 mg Capsule PO ×4 (08:33→20:27)
[2024-11-26] MEDS: ciprofloxacin 400 MG/200 ML PREMIX 200 MG IV ×2 (08:35→20:27)
[2024-11-26] MEDS: pantoprazole 40 mg SDV IVP (09:56)
[2024-11-26] MEDS: lactobacillus 1 Tablet 1 TAB PO ×2 (09:56→17:12)
[2024-11-26] MEDS: magnesium sulfate premix 2 GM/50 ML PIGGYBACK IV (10:11)
[2024-11-26] MEDS: ondansetron 2 mg/ML SDV 2 mL 4 MG IVP ×2 (10:19→18:15)
--- NOTE | 2024-11-26 12:00 | PM.PN ---
Subjective Subjective: Patient reports continued copious watery diarrhea. Continues to have abdominal discomfort. We discussed his C. difficile testing results. Discussed worsening renal labs. He reports overall he does feel slightly better today. Reports some mild improvement in his appetite. He has not taken much of the clears as they have not been appealing. He is agreeable to trying regular diet and will pick bland food. Medications: Reviewed: Yes Vitals/I&O/Wt Last Vital Signs Temp 98.2 F 11/26/24 07:52 Pulse 73 11/26/24 07:52 Resp 17 11/26/24 07:52 BP 100/62 11/26/24 07:52 Pulse Ox 95 11/26/24 07:52 O2 Del Method Room Air 11/26/24 07:52 11/25/24 11/26/24 11/26/24 22:59 06:59 14:59 Intake Total 1420 / 2840 700 / 3540 1118.75 / 1118.75 Balance 1420 / 2840 700 / 3540 1118.75 / 1118.75 Weight last 48 hrs Weight 93.894 kg Weight 92.578 kg Weight 81.647 kg Physical Exam Narrative: General: Patient is awake and alert. Ill-appearing. Head: Normocephalic. Atraumatic. EOM intact. Neck: No JVD. Cardiovascular: RRR. No gallops. No murmurs. Lungs: Clear to auscultation, no use of accessory muscles, no crackles or wheezes. Skin: No jaundice. No rashes. Abdomen: Abdomen remains distended. Hyperactive bowel sounds. Persistently tender to palpation in lower quadrants. Extremities: No cyanosis or clubbing. Musculoskeletal: No swollen or erythematous joints. Neurological: Moves all 4 extremities. No myoclonus. Data 11/26/24 03:09 11/26/24 03:09 Micro: Microbiology 11/25/24 10:55 Stool Lactoferrin - Final Stool Occult Blood (FIT) - Final A&P Assessment and plan (1) Pancolitis: Presentation consistent with pancolitis, failed outpatient treatment Continue IV ciprofloxacin and IV Flagyl (11/25-p) Ova, parasites, Salmonella/Shigella/Campylobacter stool studies pending C. difficile testing is positive Continue oral vancomycin (11/25-p) - first case Persistent leukocytosis noted Kidney function worsening, not responding to treatment as intended Increase IV hydration Continue IV antiemetics as needed Continue IV analgesics as needed Supportive care (2) Acute kidney injury: Suspect prerenal due to intractable nausea and vomiting, although renal function did not improve with fluids; may have progressed to ATN Increased normal saline rate, monitor for development of fluid overload Renal function does not improve as expected in the next 24 hours, consider nephrology consultation Strict I's and O's Daily weights Holding home lisinopril, blood pressure remains soft (3) Hyponatremia: Hypovolemic hyponatremia Provide hydration with normal saline, rate has been adjusted Trend labs (4) Vomiting: Nausea shown some improvement, will advance diet today and monitor symptomatology IV antiemetics as needed (5) Metabolic acidosis: Non-anion gap metabolic acidosis secondary to GI loss Remains persistently acidotic Trend labs (6) Hypertension: Blood pressure remains soft Holding lisinopril due to NOREEN Utilize IV hydralazine as needed Monitors pressures (7) Transaminitis: Resolved Plan DVT prophylaxis: SCD CODE STATUS: Full code PDMP PDMP Reviewed: Not Reviewed Attestations Medical Necessity Statement*: Patient requires ongoing hospitalization for IV fluid hydration, IV antibiotics, IV antiemetics, IV analgesics, and supportive care. Coding Level of Care Code Acute Code for [facility] Diagnoses Pancolitis K51.00 Acute kidney injury N17.9 Hyponatremia E87.1 Vomiting R11.10 Metabolic acidosis E87.20 Hypertension I10 Transaminitis R74.01
[2024-11-26] MEDS: sodium chloride 0.9% 1,000 ML 150 ML IV (15:54)
[2024-11-27] VITALS (8 sets, daily range): BP systolic 112–151; BP diastolic 60–83; PULSE 67–79; RESP 16–17; TEMP 36.3–36.9; O2SAT 95–96
[2024-11-27] MEDS: sodium chloride 0.9% 1,000 ML 150 ML IV ×4 (00:04→23:47)
[2024-11-27] MEDS: metroNIDAZOLE IV 500 MG/100 ML PREMIX 100 MG IV ×3 (01:15→17:13)
[2024-11-27 05:38] LABS: Basophils # 0.1 10^3/uL (0.0-0.1); Basophils % 0.5 %; Eosinophils # 0.1 10^3/uL (0.0-0.8); Eosinophils % 0.7 %; Hematocrit 41.6 % (37-53); Lymphocytes # 0.9 10^3/uL (0.8-4.8); Lymphocytes % 4.8 %; Mean Corpuscular HGB Conc 32.9 g/dL (30-55); Mean Corpuscular Hemoglobin 27.5 pg (27-33); Mean Corpuscular Volume 83.5 fl (82-101); Monocytes # 1.5 10^3/uL (0.2-0.9); Monocytes % 8.3 %; Neutrophils # 14.89 10^3/uL (1.8-7.7); Neutrophils % 81.3 %; Nucleated Red Blood Cells % 0 %; Platelet Count 232 10^3/cmm (157-399); Red Blood Count 4.98 10^6/uL (3.85-5.65); Red Cell Distribution Width 13.3 % (12.1-15.1)
[2024-11-27 05:58] LABS: Alanine Aminotransferase 21 U/L (0-41); Albumin Level 2.1 g/dL (3.5-5.2); Alkaline Phosphatase 93 U/L (40-130); Anion Gap 12.9 (5-19); Aspartate Amino Transferase 8 U/L (0-40); Blood Urea Nitrogen 15 mg/dL (6-20); Calcium 6.8 mg/dL (8.5-10.5); Carbon Dioxide 19 mmol/L (22-29); Chloride 101 mmol/L (98-107); Creatinine Clr Calc Pharmacy 73.8877; Globulin 2.2 g/dL (1.3-4.6); Glomerular Filtration Rate 62.2 mL/min (90-130); Glucose 142 mg/dL (65-115); Magnesium 2.2 mg/dL (1.7-2.3); Osmolality Calculated 271 mOsm/kg (285-295); Phosphorus 1.9 mg/dL (2.5-4.5); Potassium 3.9 mmol/L (3.5-5.1); Sodium 129 mmol/L (136-145); Total Bilirubin 0.3 mg/dL (0.15-1.2); Total Protein 4.3 g/dL (6.6-8.7)
[2024-11-27] MEDS: tamsulosin 0.4 mg Capsule PO (08:28)
[2024-11-27] MEDS: lactobacillus 1 Tablet 1 TAB PO ×2 (08:28→17:13)
[2024-11-27] MEDS: vancomycin 125 mg Capsule PO ×4 (08:28→21:31)
[2024-11-27] MEDS: ciprofloxacin 400 MG/200 ML PREMIX 200 MG IV ×2 (08:32→21:31)
--- NOTE | 2024-11-27 09:55 | PC.CHAP ---
Pastoral Care Encounter/Spiritual Assessment Type of Contact [] Declined records tech visit [] Patient/Family/Request visit [] Outpatient visit [] Follow-up visit [] Physician referral [] Code/Alert [x] Routine visit [] Staff referral [] Actively dying [] Patient sleeping [] Family support [] [] Out of room [] Palliative care [] [] Receiving care in room [] Pre-surgical visit [] Trauma [] Long length of stay [] ICU visit [] Other: Relational/Emotional Strength [] Patient feels connected with others/family/visitors/staff [] Distress [] Loneliness/isolation [] Abandonment Spirituality of Patient [] Person of Tanya [] Attends Quaker of their Tanya [] Believes in Prayer [] Reads Bible or Rastafari materials [] There are Spiritual issues to be addressed Mattress Stuffer Interventions [x] Prayer [] Active listening [] Non-anxious presence [] Spiritual/emotional support [] Crisis/trauma care [] Spiritual counseling [] Bereavement support [] Provided bereavement packet [] Provided Bible/devotional materials [] Provided toy/stuffed animal, coloring book to patient or family member [] Provided Communion [] Anointing/[place] [] Salvation [] Completed spiritual assessment [] Other: Impact on Illness or Injury [] Angry [] Fearful [] Anxious [] Often cries [] Exhaustion [] Unable to work [] Unable to attend hindu [] Unable to walk/stand [] Unable to read [] Unable to drive [] Unable to eat/drink [] Unable to sleep [] Unable to be with family [] Patient intubated [] Other: Summary precaution Time spent with patient
[2024-11-27] MEDS: pantoprazole 40 mg SDV IVP (10:51)
--- NOTE | 2024-11-27 13:08 | P.PN_ITS ---
Subjective 2 Subjective: seen today diarrhea has started to slow down he said today is the first time he is starting to feel better Vitals/I&O/Wt Last Vital Signs Temp 98.4 F 11/27/24 10:51 Pulse 68 11/27/24 10:51 Resp 17 11/27/24 10:51 BP 117/68 11/27/24 10:51 Pulse Ox 95 11/27/24 10:51 O2 Del Method Room Air 11/27/24 10:51 11/26/24 11/27/24 11/27/24 22:59 06:59 14:59 Intake Total 193. / 3530.00 1900 / 5430.00 780 / 780 Output Total 300 / 300 Balance 193. 3530.00 1600 / 5130.00 780 / 780 Weight last 48 hrs Weight 95.481 kg Weight 93.894 kg Physical Exam 2 Narrative: General: Patient is awake and alert. Ill-appearing. Head: Normocephalic. Atraumatic. EOM intact. Cardiovascular: RRR. No gallops. No murmurs. Lungs: Clear to auscultation, no use of accessory muscles, no crackles or wheezes. Skin: No jaundice. No rashes. Abdomen: Abdomen remains distended. Hyperactive bowel sounds. Non tender abdomen, Extremities: No cyanosis or clubbing. Musculoskeletal: No swollen or erythematous joints. Neurological: Moves all 4 extremities. No myoclonus. Data 11/27/24 04:58 11/27/24 04:58 A&P Assessment and plan (1) Pancolitis: Presentation consistent with pancolitis, failed outpatient treatment Continue IV ciprofloxacin and IV Flagyl (11/25-p) Ova, parasites, Salmonella/Shigella/Campylobacter stool studies pending C. difficile testing is positive Continue oral vancomycin (11/25-p) - first case Persistent leukocytosis noted Kidney function worsening, not responding to treatment as intended Increase IV hydration Continue IV antiemetics as needed Continue IV analgesics as needed Supportive care (2) Acute kidney injury: Suspect prerenal due to intractable nausea and vomiting, although renal function did not improve with fluids; may have progressed to ATN Increased normal saline rate, monitor for development of fluid overload Renal function does not improve as expected in the next 24 hours, consider nephrology consultation Strict I's and O's Daily weights Holding home lisinopril, blood pressure remains soft (3) Hyponatremia: Hypovolemic hyponatremia Provide hydration with normal saline, rate has been adjusted Trend labs (4) Vomiting: Nausea shown some improvement, will advance diet today and monitor symptomatology IV antiemetics as needed (5) Metabolic acidosis: Non-anion gap metabolic acidosis secondary to GI loss Remains persistently acidotic Trend labs (6) Hypertension: Blood pressure remains soft Holding lisinopril due to NOREEN Utilize IV hydralazine as needed Monitors pressures (7) Transaminitis: Resolved Plan DVT prophylaxis: SCD CODE STATUS: Full code 11/27/2024 seen today plan to continue current mgmt plan for dc in am if diarrhea continues to improve pt requires hospitalization for administration of IV metronidazole 2/2 to failure of tx outpatient continue oral vanc for c diff PDMP PDMP Reviewed: Not Reviewed Attestations 2 Medical Necessity Statement*: Patient requires ongoing hospitalization for IV fluid hydration, IV antibiotics, IV antiemetics, IV analgesics, and supportive care. Diagnoses Pancolitis K51.00 Acute kidney injury N17.9 Hyponatremia E87.1 Vomiting R11.10 Metabolic acidosis E87.20 Hypertension I10 Transaminitis R74.01
--- NOTE | 2024-11-27 14:15 | XRR_ITS ---
PROCEDURE INFORMATION: Exam: XR Abdomen Exam date and time: 11/27/2024 3:15 PM Age: 59 years old Clinical indication: Abdominal pain; Localized; Right upper quadrant (ruq); Additional info: Ruq pain TECHNIQUE: Imaging protocol: Radiologic exam of the abdomen. Views: Frontal supine view of the abdomen. 1 View. COMPARISON: CT abdomen pelvis w con* [id number] 11/25/2024 7:30 AM FINDINGS: Limitations: Entire abdomen is not included in the field of view. Gastrointestinal tract: Nonobstructive bowel gas pattern. Bones/joints: No acute osseous abnormality. XR/XR KUB portable [id number] IMPRESSION: No acute findings within included portions of the abdomen. Nonobstructive bowel gas pattern.
[2024-11-27] MEDS: ondansetron 2 mg/ML SDV 2 mL 4 MG IVP (21:35)
[2024-11-28] VITALS: BP 135/69; PULSE 69; RESP 16; TEMP 37; O2SAT 95
[2024-11-28] MEDS: metroNIDAZOLE IV 500 MG/100 ML PREMIX 100 MG IV ×2 (03:10→09:46)
[2024-11-28 04:00] VITALS: BP 126/75; PULSE 72; RESP 18; TEMP 36.8; O2SAT 95
[2024-11-28 06:59] VITALS: PULSE 64
[2024-11-28 07:11] LABS: Basophils # 0.1 10^3/uL (0.0-0.1); Basophils % 0.7 %; Eosinophils # 0.2 10^3/uL (0.0-0.8); Eosinophils % 1.1 %; Hematocrit 40.1 % (37-53); Lymphocytes # 0.9 10^3/uL (0.8-4.8); Lymphocytes % 5.6 %; Mean Corpuscular HGB Conc 33.4 g/dL (30-55); Mean Corpuscular Hemoglobin 28.1 pg (27-33); Mean Corpuscular Volume 84.1 fl (82-101); Mean Platelet Volume 10.1 fL (7.4-10.4); Monocytes # 1.1 10^3/uL (0.2-0.9); Monocytes % 7.2 %; Neutrophils # 12.13 10^3/uL (1.8-7.7); Neutrophils % 78.6 %; Nucleated Red Blood Cells % 0 %; Platelet Count 322 10^3/cmm (157-399); Red Blood Count 4.77 10^6/uL (3.85-5.65); Red Cell Distribution Width 13.2 % (12.1-15.1); White Blood Count 15.43 10^3/uL (3.29-11.43)
[2024-11-28] MEDS: sodium chloride 0.9% 1,000 ML 150 ML IV (07:19)
[2024-11-28] MEDS: vancomycin 125 mg Capsule PO ×2 (07:20→12:44)
[2024-11-28] MEDS: tamsulosin 0.4 mg Capsule PO (07:20)
[2024-11-28] MEDS: lactobacillus 1 Tablet 1 TAB PO (07:20)
[2024-11-28] MEDS: ciprofloxacin 400 MG/200 ML PREMIX 200 MG IV (07:26)
[2024-11-28] MEDS: ondansetron 2 mg/ML SDV 2 mL 4 MG IVP (07:26)
[2024-11-28 07:33] LABS: Anion Gap 12.2 (5-19); Blood Urea Nitrogen 16 mg/dL (6-20); Calcium 6.8 mg/dL (8.5-10.5); Carbon Dioxide 22 mmol/L (22-29); Chloride 99 mmol/L (98-107); Creatinine Clr Calc Pharmacy 88.6652; Glomerular Filtration Rate 76.7 mL/min (90-130); Glucose 122 mg/dL (65-115); Magnesium 2.1 mg/dL (1.7-2.3); Osmolality Calculated 270 mOsm/kg (285-295); Potassium 4.2 mmol/L (3.5-5.1); Sodium 129 mmol/L (136-145)
[2024-11-28 07:51] LABS: Slide Review Slide Review Perform
[2024-11-28 08:00] VITALS: BP 137/88; PULSE 65; RESP 16; TEMP 36.8; O2SAT 95
[2024-11-28] MEDS: pantoprazole 40 mg SDV IVP (09:46)
--- NOTE | 2024-11-28 10:09 | US_ITS ---
WS: [id number] Abdominal ultrasound, limited. History: Evaluate for ascites. Comparison: None. All 4 quadrants are imaged by ultrasound to evaluate for ascites. Minimal ascites noted within the peritoneal cavity. US/US abdomen limited [id number] IMPRESSION: Minimal ascites. Insufficient for paracentesis.
--- NOTE | 2024-11-28 10:17 | PC.CHAP ---
Pastoral Care Encounter/Spiritual Assessment Type of Contact [] Declined networking engineer visit [] Patient/Family/Request visit [] Outpatient visit [] Follow-up visit [] Physician referral [] Code/Alert [] Routine visit [] Staff referral [] Actively dying [] Patient sleeping [] Family support [] [] Out of room [] Palliative care [] [] Receiving care in room [] Pre-surgical visit [] Trauma [] Long length of stay [] ICU visit [x] Other:Contact precautions. No visit. Relational/Emotional Strength [] Patient feels connected with others/family/visitors/staff [] Distress [] Loneliness/isolation [] Abandonment Spirituality of Patient [] Person of Tanya [] Attends Mormonism of their Tanya [] Believes in Prayer [] Reads Bible or Buddhism materials [] There are Spiritual issues to be addressed Exhibition Organiser Interventions [] Prayer [] Active listening [] Non-anxious presence [] Spiritual/emotional support [] Crisis/trauma care [] Spiritual counseling [] Bereavement support [] Provided bereavement packet [] Provided Bible/devotional materials [] Provided toy/stuffed animal, coloring book to patient or family member [] Provided Communion [] Anointing/[place] [] Salvation [] Completed spiritual assessment [] Other: Impact on Illness or Injury [] Angry [] Fearful [] Anxious [] Often cries [] Exhaustion [] Unable to work [] Unable to attend alevism [] Unable to walk/stand [] Unable to read [] Unable to drive [] Unable to eat/drink [] Unable to sleep [] Unable to be with family [] Patient intubated [] Other: Summary Time spent with patient
[2024-11-28 11:28] VITALS: BP 134/75; PULSE 60; RESP 16; TEMP 36.8; O2SAT 94
--- NOTE | 2024-11-28 14:06 | P.DS_ITS ---
Discharge Providers Date of Admission: 11/26/24 12:00 Date of Discharge: November 28, 2024 Attending Provider at Admission: Sammy Farooq MD Attending Provider at Discharge: Lauren Ye MD Primary Care Provider: Alexi Sharpe MD Diagnoses at Discharge Discharge Diagnosis (1) Pancolitis: Status: Resolved (2) Acute kidney injury: Status: Resolved (3) Hyponatremia: Status: Acute (4) Vomiting: Status: Resolved (5) Metabolic acidosis: Status: Resolved (6) Hypertension: Status: Resolved (7) Transaminitis: Status: Acute Reason for Visit Reason for Visit: n/v Hospital Course Hospital Course Patient was admitted for pancolitis after failing outpatient treatment. He was diagnosed with C. difficile. He was placed on oral vancomycin and due to severity of colitis was continued on ciprofloxacin and Flagyl as well. He also had distention of abdomen which was improving. They are worse evidence of minimal ascites on initial CT scan from admission. Repeat ultrasound abdomen was performed which did not show much ascites enough to drain. Patient was discharged home in stable condition. He was able to pass gas and was able to tolerate oral diet. Also had hypovolemic hyponatremia which improved. NOREEN also improved. Transaminitis resolved. Patient will be sent to primary care doctor for follow-up. Personally discussed his care with Dr. Sharpe over the phone. Physical Exam Narrative: General: Patient is awake and alert. Ill-appearing. Head: Normocephalic. Atraumatic. EOM intact. Cardiovascular: RRR. No gallops. No murmurs. Lungs: Clear to auscultation, no use of accessory muscles, no crackles or wheezes. Abdomen: Abdomen remains distended. Hyperactive bowel sounds. Non tender abdomen, Extremities: No cyanosis or clubbing. Musculoskeletal: No swollen or erythematous joints. Neurological: Moves all 4 extremities. No myoclonus. Discharge Data Studies Completed and Pending Completed Studies During Hospitalization Category Date Time Status CT abdomen pelvis w con* [id number] Stat Cat Scan 11/25/24 07:05 Completed XR KUB portable [id number] Stat Exams 11/27/24 14:15 Completed US abdomen limited [id number] Routine Ultrasound 11/28/24 10:09 Completed Pending at discharge Category Date Time Status OVA and Parasites, Conc and PE Routine Lab 11/25/24 10:55 Received Salmonella / Shigella / Campy Routine Lab 11/25/24 10:55 Received Radiology Impressions Abdomen/Pelvis CT 11/25/24 07:05 IMPRESSION: Pancolitis, likely infectious/inflammatory in etiology. Mild increase in the ascites. No bowel perforation or bowel obstruction. KUB X-Ray 11/27/24 14:15 IMPRESSION: No acute findings within included portions of the abdomen. Nonobstructive bowel gas pattern. Abdomen Ultrasound 11/28/24 10:09 IMPRESSION: Minimal ascites. Insufficient for paracentesis. Laboratory Results WBC 15.43 10^3/uL (3.29-11.43) H 11/28/24 06:37 RBC 4.77 10^6/uL (3.85-5.65) 11/28/24 06:37 Hgb 13.40 g/dL (11.27-16.99) 11/28/24 06:37 Hct 40.1 % (37-53) 11/28/24 06:37 MCV 84.1 fl (82-101) 11/28/24 06:37 MCH 28.1 pg (27-33) 11/28/24 06:37 MCHC 33.4 g/dL (30-55) 11/28/24 06:37 RDW 13.2 % (12.1-15.1) 11/28/24 06:37 Plt Count 322 10^3/cmm (157-399) D 11/28/24 06:37 MPV 10.1 fL (7.4-10.4) 11/28/24 06:37 Neut % (Auto) 78.6 % 11/28/24 06:37 Lymph % (Auto) 5.6 % 11/28/24 06:37 [place] % (Auto) 7.2 % 11/28/24 06:37 Eos % (Auto) 1.1 % 11/28/24 06:37 Baso % (Auto) 0.7 % 11/28/24 06:37 Neut # (Auto) 12.13 10^3/uL (1.8-7.7) H 11/28/24 06:37 Lymph # (Auto) 0.9 10^3/uL (0.8-4.8) 11/28/24 06:37 [place] # (Auto) 1.1 10^3/uL (0.2-0.9) H 11/28/24 06:37 Eos # (Auto) 0.2 10^3/uL (0.0-0.8) 11/28/24 06:37 Baso # (Auto) 0.1 10^3/uL (0.0-0.1) 11/28/24 06:37 Nucleated RBC % (auto) 0 % 11/28/24 06:37 Nucleated RBCs # 0.0 /100WBC 11/28/24 06:37 Sodium 129 mmol/L (136-145) L 11/28/24 06:37 Potassium 4.2 mmol/L (3.5-5.1) 11/28/24 06:37 Chloride 99 mmol/L (98-107) 11/28/24 06:37 Carbon Dioxide 22 mmol/L (22-29) 11/28/24 06:37 Anion Gap 12.2 (5-19) 11/28/24 06:37 BUN 16 mg/dL (6-20) 11/28/24 06:37 Creatinine 1.0 mg/dL (0.7-1.2) 11/28/24 06:37 GFR Calculation 76.7 mL/min (90-130) L 11/28/24 06:37 Glucose 122 mg/dL (65-115) H 11/28/24 06:37 Calculated Osmolality 270 mOsm/kg (285-295) L 11/28/24 06:37 Lactic Acid 1.9 mmol/L (0.5-2.2) 11/25/24 06:54 Calcium 6.8 mg/dL (8.5-10.5) L 11/28/24 06:37 Phosphorus 1.9 mg/dL (2.5-4.5) L 11/27/24 04:58 Magnesium 2.1 mg/dL (1.7-2.3) 11/28/24 06:37 Total Bilirubin 0.3 mg/dL (0.15-1.2) 11/27/24 04:58 AST 8 U/L (0-40) 11/27/24 04:58 ALT 21 U/L (0-41) 11/27/24 04:58 Alkaline Phosphatase 93 U/L (40-130) 11/27/24 04:58 C-Reactive Protein 258.2 mg/L (0.0-4.9) H 11/26/24 03:09 Total Protein 4.3 g/dL (6.6-8.7) L 11/27/24 04:58 Albumin 2.1 g/dL (3.5-5.2) L 11/27/24 04:58 Globulin 2.2 g/dL (1.3-4.6) 11/27/24 04:58 Lipase 18 U/L (13-60) 11/25/24 06:54 Procalcitonin 0.44 ng/mL (0-0.5) 11/25/24 06:54 C. difficile (PCR) Positive (Negative) H 11/25/24 10:56 Vitals Last Vital Signs Temp 98.2 F 11/28/24 11:28 Pulse 60 11/28/24 11:28 Resp 16 11/28/24 11:28 BP 134/75 11/28/24 11:28 Pulse Ox 94 11/28/24 11:28 O2 Del Method Room Air 11/28/24 11:28 Discharge Plan Discharge Patient Disposition: Home Condition: Stable Prescriptions: New vancomycin 125 mg Capsule 125 mg PO QID 8 Days Qty: 32 0RF Continued famotidine [Pepcid AC] 10 mg tablet 10 mg PO DAILY tamsulosin [Flomax] 0.4 mg capsule 0.4 mg PO DAILY tramadol 50 mg tablet 50 mg PO Q8H PRN (Reason: pain) Qty: 10 0RF ondansetron 8 mg tablet,disintegrating 8 mg PO Q6H Qty: 14 0RF Rx Instructions: Take 1/2-1 tab every 6 hours as needed for nausea and vomiting Held lisinopril 40 mg tablet 40 mg PO DAILY Hold Instructions: see pcp Discontinued metronidazole 500 mg tablet 500 mg PO Q8H 10 Days Qty: 30 0RF ciprofloxacin HCl 500 mg tablet 500 mg PO BID 10 Days Qty: 20 0RF Discharge Orders: Discharge Order (Routine); Ordered 11/28/24 Ordered By: Lauren Ye Referrals: Alexi Sharpe MD [Primary Care Provider] - 12/04/24 12:00 pm Discharge Diet: GI Soft Discharge Activity: Resume usual activity Patient Instructions: Vancomycin (By mouth), C. Diff (Clostridioides Difficile) Infection (GEN), Transaminitis (GEN), Opioid Safety Discharge Attestations Time Spent in Discharge Care*: greater than 30 min Quality Metrics Clinical Quality Measures [ No reported AMI, CVA or VTE this stay] Coding Level of Care Code Acute Code for [facility] Diagnoses Pancolitis K51.00 Acute kidney injury N17.9 Hyponatremia E87.1 Vomiting R11.10 Metabolic acidosis E87.20 Hypertension I10 Transaminitis R74.01
[2024-11-28 14:26] VITALS: BP 134/75; PULSE 60; RESP 16; TEMP 36.8; O2SAT 94
--- NOTE | 2024-11-28 14:46 | PC.NURSE ---
Discharge instructions provided to pt at this time. NO questions or concerns at this time. Son here to drive pt home.
== END 2024-11-28 14:47 | disposition home or self-care (01) | DRG 372 ==
LOC: ER 08:46 → MEDSURG 10:01
PROVIDERS: Admitting Provider Internal Medicine; Emergency Provider Emergency Medicine; PCP Family Medicine; Visit Provider Internal Medicine
DX: A04.71 Enterocolitis due to Clostridium difficile, recurrent (principal); E87.1 Hypo-osmolality and hyponatremia; N17.9 Acute kidney failure, unspecified; R18.8 Other ascites; E87.20 Acidosis, unspecified; K52.9 Noninfective gastroenteritis and colitis, unspecified; I10 Essential (primary) hypertension; R74.01 Elevation of levels of liver transaminase levels; E86.1 Hypovolemia; Z79.891 Long term (current) use of opiate analgesic
CPT/HCPCS: 36415; 74018; 74177; 76705; 80048; 80053; 82274; 83605; 83630; 83690; 83735; 84100; 84145; 85025; 86140; 87045; 87177; 87209; 87427; 87449; 87493; 96365; 96367; 96375; 99285; G0378; J0744; J1200; J2270; J2405; J2470; J2765; J3475; J3490; J7030; J9999

== ENCOUNTER 2025-01-05 15:20 | Emergency (ER) | payer MEDICARE, OTHER, SELFPAY ==
[2025-01-05 15:42] VITALS: BP 205/81; PULSE 98; RESP 16; TEMP 36.6; O2SAT 98; BMI 29.7
--- NOTE | 2025-01-05 16:08 | XRR_ITS ---
PROCEDURE INFORMATION: Exam: XR Chest Exam date and time: 01/05/2025 4:32 PM Age: 59 years old Clinical indication: Cough and dyspnea; Dyspnea; Cough; HTN; Chest presssure; Additional info: Dyspnea/cough TECHNIQUE: Imaging protocol: Radiologic exam of the chest. Views: 1 view. COMPARISON: CR XR KUB portable [id number] 11/27/2024 3:15 PM FINDINGS: Lungs: There is mild pulmonary hypoinflation with mild asymmetric elevation of the right hemidiaphragm. There are mild compressive changes at the lung bases bilaterally. No focal consolidation or tara pulmonary edema is seen. Pleural spaces: No significant pleural effusion. No pneumothorax. Heart/Mediastinum: Borderline enlarged. Bones/joints: Intact. Other findings: None. XR/XR chest 1V portable [id number] IMPRESSION: 1. Mild pulmonary hypoinflation with asymmetric elevation of the right hemidiaphragm and mild bibasilar atelectasis. 2. Borderline cardiomegaly. 3. No dense focal consolidation or evidence for congestive heart failure.
[2025-01-05 16:16] VITALS: BP 189/103; PULSE 56; O2SAT 97
--- NOTE | 2025-01-05 16:27 | W.ED.GENADLT ---
HPI - General Adult General: Chief complaint: General Medical Stated complaint: high BP Time Seen by Provider: 01/05/25 16:07 History of Present Illness: 59-year-old male presents to the emergency room complaining of elevated blood pressure. He recently was treated for C. difficile during the course of this his lisinopril was stopped because his blood pressure had gotten low. He was restarted given hydralazine uses as needed for elevated blood pressures. Despite this he has had several elevated blood pressure some mild headache no vomiting or diarrhea no chest pain or shortness of breath Associated symptoms: Deny chest pain, dyspnea or rash Related Data Home Medications ?Medication ?Instructions ?Recorded ?Confirmed famotidine 10 mg tablet (Pepcid AC) 10 mg PO DAILY 01/28/22 01/05/25 lisinopril 40 mg tablet 40 mg PO DAILY 01/28/22 01/05/25 Held on 11/28/24. Instructions: see pcp tamsulosin 0.4 mg capsule (Flomax) 0.4 mg PO DAILY 11/24/24 01/05/25 hydralazine 25 mg tablet 25 mg PO Q8H 01/05/25 01/05/25 vancomycin 125 mg capsule 125 mg PO QID 01/05/25 01/05/25 Previous Rx's ?Medication ?Instructions ?Recorded ondansetron 8 mg disintegrating 8 mg PO Q6H #14 tabs 11/24/24 tablet amlodipine 5 mg tablet 5 mg PO DAILY #30 tabs 01/05/25 Allergies Allergy/AdvReac Type Severity Reaction Status Date / Time propranolol Allergy ALGY-Swell Verified 01/05/25 15:46 Lip/Tongue/Throat Review of Systems Const: Denies: fever(s) or chills Card: Denies: chest pain Resp: Denies: dyspnea GI: Denies: abdominal pain : Denies: dysuria, urinary frequency or urinary urgency Musc: Denies: neck pain or back pain Skin/Breast: Denies: rash PFSH ED PFSH: Social History Smoking and tobacco/nicotine status: never used tobacco/nicotine Physical Exam Const: COMMON NORMALS: no acute distress GENERAL APPEARANCE: cooperative and comfortable ORIENTATION/CONSCIOUSNESS: Yes awake, Yes oriented to person, Yes oriented to place and Yes oriented to time HENMT: COMMON NORMALS: normocephalic, atraumatic and hearing grossly normal bilaterally HEAD & SCALP: normocephalic and atraumatic Resp: COMMON NORMALS: normal respiratory effort, No retractions, No use of accessory muscles and clear to auscultation bilaterally AUSCULTATION: clear to auscultation bilaterally Cardio: COMMON NORMALS: regular rate, regular rhythm and No murmurs present (Cardio) RATE: regular rate RHYTHM: regular rhythm GI: COMMON NORMALS: Soft to palpation and No hepatosplenomegaly present AUSCULTATION: Yes normoactive bowel sounds PALPATION: Yes Soft to palpation, No Tenderness to palpation present (GI), No Guarding due to palpation present (GI) and Yes No hepatosplenomegaly present Extremity: COMMON NORMALS: normal to inspection, capillary refill normal, no clubbing, cyanosis or edema, no calf tenderness and no pedal edema Neuro: SENSORIUM/ORIENTATION: Yes oriented to person, Yes oriented to place and Yes oriented to time OTHER: No focal neurologic abnormalities. 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 - General Adult Medical Decision Making Blood pressure improved with medications given. Recommend he continue his lisinopril as creatinine is good at this point he is not having any hyperkalemia. Will also add amlodipine 5 mg daily. Discussed with the patient he should monitor blood pressures at home follow-up with his doctor within the next week to review efficacy of medication adjustments Differential Diagnosis Hypertension, arrhythmia, abnormal renal function or electrolyte abnormalities Medical Records I reviewed the patient's medical records. Lab Data I reviewed the patient's lab results. 01/05/25 16:35 01/05/25 16:35 Radiology Impressions Chest X-Ray 01/05/25 16:08 IMPRESSION: 1. Mild pulmonary hypoinflation with asymmetric elevation of the right hemidiaphragm and mild bibasilar atelectasis. 2. Borderline cardiomegaly. 3. No dense focal consolidation or evidence for congestive heart failure. Laboratory Results WBC 9.08 10^3/uL (3.29-11.43) 01/05/25 16:35 RBC 4.73 10^6/uL (3.85-5.65) 01/05/25 16:35 Hgb 12.90 g/dL (11.27-16.99) 01/05/25 16:35 Hct 40.1 % (37-53) 01/05/25 16:35 MCV 84.8 fl (82-101) 01/05/25 16:35 MCH 27.3 pg (27-33) 01/05/25 16:35 MCHC 32.2 g/dL (30-55) 01/05/25 16:35 RDW 14.8 % (12.1-15.1) 01/05/25 16:35 Plt Count 254 10^3/cmm (157-399) 01/05/25 16:35 MPV 11.1 fL (7.4-10.4) H 01/05/25 16:35 Neut % (Auto) 59.6 % 01/05/25 16:35 Lymph % (Auto) 25.3 % 01/05/25 16:35 [place] % (Auto) 6.2 % 01/05/25 16:35 Eos % (Auto) 3.7 % 01/05/25 16:35 Baso % (Auto) 0.9 % 01/05/25 16:35 Neut # (Auto) 5.41 10^3/uL (1.8-7.7) 01/05/25 16:35 Lymph # (Auto) 2.3 10^3/uL (0.8-4.8) 01/05/25 16:35 [place] # (Auto) 0.6 10^3/uL (0.2-0.9) 01/05/25 16:35 Eos # (Auto) 0.3 10^3/uL (0.0-0.8) 01/05/25 16:35 Baso # (Auto) 0.1 10^3/uL (0.0-0.1) 01/05/25 16:35 Nucleated RBC % (auto) 0 % 01/05/25 16:35 Nucleated RBCs # 0.0 /100WBC 01/05/25 16:35 Sodium 140 mmol/L (136-145) 01/05/25 16:35 Potassium 3.8 mmol/L (3.5-5.1) 01/05/25 16:35 Chloride 106 mmol/L (98-107) 01/05/25 16:35 Carbon Dioxide 22 mmol/L (22-29) 01/05/25 16:35 Anion Gap 15.8 (5-19) 01/05/25 16:35 BUN 12 mg/dL (6-20) 01/05/25 16:35 Creatinine 0.9 mg/dL (0.7-1.2) 01/05/25 16:35 GFR Calculation 86.7 mL/min (90-130) L 01/05/25 16:35 Glucose 96 mg/dL (65-115) 01/05/25 16:35 Calculated Osmolality 290 mOsm/kg (285-295) 01/05/25 16:35 Calcium 8.4 mg/dL (8.5-10.5) L 01/05/25 16:35 Total Bilirubin 0.4 mg/dL (0.15-1.2) 01/05/25 16:35 AST 19 U/L (0-40) 01/05/25 16:35 ALT 28 U/L (0-41) 01/05/25 16:35 Alkaline Phosphatase 91 U/L (40-130) 01/05/25 16:35 Total Protein 6.3 g/dL (6.6-8.7) L 01/05/25 16:35 Albumin 4.0 g/dL (3.5-5.2) 01/05/25 16:35 Globulin 2.3 g/dL (1.3-4.6) 01/05/25 16:35 Urine Color Yellow (Yellow) 01/05/25 17:33 Urine Appearance Clear (CLEAR) 01/05/25 17:33 Urine pH 7.0 (5-7) 01/05/25 17:33 Ur Specific [place] 1.003 (1.005-1.030) L 01/05/25 17:33 Urine Protein Negative (Negative) 01/05/25 17:33 Urine Glucose (UA) Negative (Normal) 01/05/25 17:33 Urine Ketones Negative (Negative) 01/05/25 17:33 Urine Blood Negative (Negative) 01/05/25 17:33 Urine Nitrate Negative (Negative) 01/05/25 17:33 Urine Bilirubin Negative (Negative) 01/05/25 17:33 Urine Urobilinogen 0.2 mg/dL (Negative) 01/05/25 17:33 Ur Leukocyte Esterase Negative (Negative) 01/05/25 17:33 Urine RBC 0-2 /hpf (0-2) 01/05/25 17:33 Urine WBC 0-5 /hpf (0-5) 01/05/25 17:33 Ur Squamous Epith Cells 0-5 /hpf (0-5) 01/05/25 17:33 Amorphous Sediment Not Reportable 01/05/25 17:33 Urine Bacteria None seen /hpf (NONE) 01/05/25 17:33 Hyaline Casts 0-4 /lpf H 01/05/25 17:33 All radiology interpretation(s) finalized by discharge EKG Data EKG 1: Computer generated interpretation: Chest X-Ray 01/05/25 16:08 IMPRESSION: 1. Mild pulmonary hypoinflation with asymmetric elevation of the right hemidiaphragm and mild bibasilar atelectasis. 2. Borderline cardiomegaly. 3. No dense focal consolidation or evidence for congestive heart failure. EKG 01/05/2025 1734 normal sinus rhythm no acute ST changes rate of 73 [place] interval 166 Discharge Plan Discharge Patient Disposition: Home Clinical Impression: Hypertension Condition: Stable Prescriptions: New amlodipine 5 mg tablet 5 mg PO DAILY Qty: 30 0RF No Action famotidine [Pepcid AC] 10 mg tablet 10 mg PO DAILY lisinopril 40 mg tablet 40 mg PO DAILY tamsulosin [Flomax] 0.4 mg capsule 0.4 mg PO DAILY ondansetron 8 mg tablet,disintegrating 8 mg PO Q6H Qty: 14 0RF Rx Instructions: Take 1/2-1 tab every 6 hours as needed for nausea and vomiting hydralazine 25 mg tablet 25 mg PO Q8H vancomycin 125 mg capsule 125 mg PO QID Discharge Orders: Discharge ED (Routine); Ordered 01/05/25 Ordered By: Papito Boateng Referrals: Alexi Sharpe MD [Primary Care Provider] - Discharge Diet: Usual diet Discharge Activity: Increase activity as tolerated Patient Instructions: Opioid Safety, Pain Management Activity Restrictions/Additional Instructions: Thank you for choosing [facility] for your healthcare needs today. It is very important that you follow up as instructed or that you return to the Emergency Department should you have concerns or if your condition changes or worsens in any way. You are seen in the emergency room as elevated blood pressure your blood pressure did not improve with medications given commend you continue your lisinopril 40 mg daily. Also recommend you start amlodipine 5 mg daily given a prescription for this. Use the hydralazine you can take 2 tablets every 8 hours as needed for blood pressures that are elevated above 160-180. Recheck with your primary care doctor next week to reevaluate blood pressure take any blood pressure readings you do at home with you to the next office visit. Print Language: Yakut Coding Level of Care Code ED Label Fuser Tender for Arjun Puentes
[2025-01-05 16:33] VITALS: BP 197/87; PULSE 65; O2SAT 96
[2025-01-05] MEDS: amlodipine 10 mg Tablet PO (16:50)
[2025-01-05] MEDS: enalaprilat 2.5 mg/2 mL SDV 1.25 MG IVP (16:51)
[2025-01-05 16:52] LABS: Basophils # 0.1 10^3/uL (0.0-0.1); Basophils % 0.9 %; Eosinophils # 0.3 10^3/uL (0.0-0.8); Eosinophils % 3.7 %; Hematocrit 40.1 % (37-53); Lymphocytes # 2.3 10^3/uL (0.8-4.8); Lymphocytes % 25.3 %; Mean Corpuscular HGB Conc 32.2 g/dL (30-55); Mean Corpuscular Hemoglobin 27.3 pg (27-33); Mean Corpuscular Volume 84.8 fl (82-101); Mean Platelet Volume 11.1 fL (7.4-10.4); Monocytes # 0.6 10^3/uL (0.2-0.9); Monocytes % 6.2 %; Neutrophils # 5.41 10^3/uL (1.8-7.7); Neutrophils % 59.6 %; Nucleated Red Blood Cells % 0 %; Platelet Count 254 10^3/cmm (157-399); Red Blood Count 4.73 10^6/uL (3.85-5.65); Red Cell Distribution Width 14.8 % (12.1-15.1); White Blood Count 9.08 10^3/uL (3.29-11.43)
[2025-01-05] MEDS: hyDRALAzine 20 mg/mL INJ 1 mL IVP (16:54)
[2025-01-05 17:13] LABS: Alanine Aminotransferase 28 U/L (0-41); Alkaline Phosphatase 91 U/L (40-130); Anion Gap 15.8 (5-19); Aspartate Amino Transferase 19 U/L (0-40); Blood Urea Nitrogen 12 mg/dL (6-20); Calcium 8.4 mg/dL (8.5-10.5); Carbon Dioxide 22 mmol/L (22-29); Chloride 106 mmol/L (98-107); Creatinine Clr Calc Pharmacy 93.8105; Globulin 2.3 g/dL (1.3-4.6); Glomerular Filtration Rate 86.7 mL/min (90-130); Glucose 96 mg/dL (65-115); Osmolality Calculated 290 mOsm/kg (285-295); Potassium 3.8 mmol/L (3.5-5.1); Sodium 140 mmol/L (136-145); Total Bilirubin 0.4 mg/dL (0.15-1.2); Total Protein 6.3 g/dL (6.6-8.7)
--- NOTE | 2025-01-05 17:34 | ECG_ITS ---
[facility] Date: 2025-01-05 Pat Name: Que Mallory Department: Room: Gender: Male Stock Holder: : 1965 Requested By: Papito Gooden Order Number: [id number] Reading MD: MEAGAN REYEZ Measurements Intervals [place] Rate: 73 P: 55 AK: 166 QRS: 26 QRSD: 86 T: 44 QT: 393 QTc: 433 Interpretive Statements SINUS RHYTHM POSSIBLE LEFT ATRIAL ENLARGEMENT [-0.1mV P-WAVE IN V1/V2] No previous ECG available for comparison Electronically Signed On 01-08-2025 21:00:10 CDT by MEAGAN REYEZ [email or web address]
[2025-01-05 17:46] VITALS: BP 144/74; PULSE 76; O2SAT 95
[2025-01-05 17:53] LABS: Bilirubin Urine Negative (Negative); Blood Urine Negative (Negative); Glucose Urine UA Negative (Normal); Ketones Urine Negative (Negative); Leukocyte Esterase Urine Negative (Negative); Nitrate Urine Negative (Negative); Protein Urine Negative (Negative); Specific Gravity, Urine 1.003 (1.005-1.030); Urine Appearance Clear (CLEAR); Urine Color Yellow (Yellow); Urobilinogen Urine 0.2 mg/dL (Negative)
[2025-01-05 17:57] LABS: Add Urine Microscopic? YES; Bacteria Urine None Seen /hpf; Hyaline Casts Urine 0-4 /lpf; RBC Urine 0-2 /hpf (0-2); Squamous Epithelial Cell Urine 0-5 /hpf (0-5); WBC Urine 0-5 /hpf (0-5)
[2025-01-05 18:10] VITALS: BP 143/80; PULSE 68; RESP 22; O2SAT 96
== END 2025-01-05 18:10 | disposition home or self-care (01) ==
PROVIDERS: Emergency Provider Family Medicine; PCP Family Medicine
DX: I10 Essential (primary) hypertension (principal)
CPT/HCPCS: 36415; 71045; 80053; 81001; 85025; 93005; 96374; 96375; 99285; J0360; J9999

== ENCOUNTER → 2025-02-13 09:22 | Outpatient (BNVA) | payer MEDICARE, OTHER, SELFPAY | PROVIDERS: PCP Family Medicine; Visit Provider Student in an Organized Health Care Education/Training Program | DX: A04.71 Enterocolitis due to Clostridium difficile, recurrent (principal) | CPT/HCPCS: 99205 ==